=== PATIENT | female | born 1960 | race African-American/Black ===

== ENCOUNTER 2020-10-05 14:49 | Emergency (ER) | payer MEDICAID ==
[~2020-10-05] VITALS: Ht 162.6 cm; Wt 64.0 kg
[2020-10-05 14:55] VITALS: BP 131/80
== END 2020-10-05 15:56 | disposition left against medical advice (07) ==
LOC: ER 14:49
DX: Z53.21 Procedure and treatment not carried out due to patient leaving prior to being seen by health care provider (principal); I49.9 Cardiac arrhythmia, unspecified; E78.5 Hyperlipidemia, unspecified; R73.03 Prediabetes
CPT/HCPCS: 93005